=== PATIENT | female | born 1970 | race Caucasian/White ===

== ENCOUNTER → 2016-08-17 | Outpatient (CLI) | payer OTHER | LOC: CIMAGING 13:09 | PROVIDERS: ATTEND Internal Medicine | DX: N64.4 Mastodynia (principal) | CPT/HCPCS: 76641-PO; G0204 ==

== ENCOUNTER → 2016-12-18 | Outpatient (CLI) | payer OTHER | LOC: CIMAGING 13:19 → FIMAGING 14:41 | PROVIDERS: ATTEND Internal Medicine ==

== ENCOUNTER 2018-07-28 04:30 | Emergency (ER) | payer OTHER ==
[2018-07-28] MEDS ORDERED: PROPARACAINE 0.5% 15 ML OPHT DROP LEFTEYE ONE (04:51)
--- NOTE | 2018-07-28 04:57 | EDPHY ---
H & P Time Seen by Provider: 07/28/18 04:55 HPI/ROS: CC: left eye pain HPI: This 48-year-old female with past medical history of anxiety presents to the emergency department today complaining of left eye pain that woke her up at 2:00 a.m.. She states yesterday around 2 in the afternoon she developed cloudy vision in her left eye. She does wear biweekly contact lenses and had this particular contact lens for the last week. 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 She may have been rubbing her eye today as well. She called her eye doctor at the [facility] in the [facility] and they told her things to watch for and felt that it was not an emergency. They told her to take her contact lens out and rest her eyes. She went to sleep and woke up at 2:00 a.m. with severe pain. She did not have the sensation of a curtain closing over her eye and denies foreign body. She does not have a history of glaucoma. She takes only oral contraceptives. She does not have a history of HSV. REVIEW OF SYSTEMS: Constitutional: No fever, no chills. Eyes: No discharge. ENT: No sore throat. Respiratory: No cough. Skin: No rashes. Neurological: No headache. Past Medical/Surgical History: PMH: anxiety PSH: parathyroid surgery FH: denied NKDA Meds: OC PCP: Dr. Brandi Wiseman; eye doctor at [facility] Social History: Denies history of tobacco use. Rare alcohol use. No marijuana or other recreational drug use. She thinks her tetanus status is up-to-date. Smoking Status: Never smoked Physical Exam: General Appearance: Alert, severe distress. Crying. Eyes: Pupils equal and round. Left eyelid swollen from crying. ENT, Mouth: Mucous membranes are moist. No intraoral erythema or exudates. No oral lesions. Respiratory: There are no retractions. Cardiovascular: Normal peripheral perfusion. Neurological: Awake and alert, sensory and motor exams grossly normal. JCN II- XII grossly intact. Skin: Warm and dry, no rashes. Musculoskeletal: Neck is supple. Extremities are symmetrical, full range of motion. Psychiatric: Patient is oriented X 3, there is no agitation. DIFFERENTIAL DIAGNOSIS: After history and physical exam differential diagnosis was considered for but not limited to and in no particular order: Conjunctivitis, foreign body, corneal abrasion, corneal ulcer, HSV infection, acute closed angle glaucoma Constitutional: Initial Vital Signs Temperature (C) 98.4 F 07/28/18 04:41 Heart Rate 89 07/28/18 04:41 Respiratory Rate 18 07/28/18 04:41 Blood Pressure 163/107 H 07/28/18 04:41 O2 Sat (%) 97 07/28/18 04:41 O2 Delivery Mode Room Air Allergies/Adverse Reactions: No Known Allergies Allergy (Verified 11/09/14 22:43) Home Medications: Medication Instructions Recorded Junel 1 mg-20 Mcg Tablet 07/28/18 Medical Decision Making ED Course/Re-evaluation: The patient was seen and examined. Vital signs reviewed and showed elevated blood pressure. This remained elevated throughout her stay and she was advised to follow up with her primary care provider regarding this. Visual acuity noted. Please see nursing notes. The patient's eye was anesthetized with proparacaine eyedrops. Her retina was unable to be visualized by me. Fluorescein stain revealed a large approximately 5 mm circular uptake of the dye. Then her intra-ocular pressure was measured and was 18. Eyelids were everted and there was no evidence of foreign body. Slit-lamp exam also revealed this corneal abrasion. No hyphema. No cell and flare. No dendritic lesions. The patient's eye was irrigated and ofloxacin antibiotic eyedrops were applied to the left eye. She was advised to follow up with either her eye doctor or the molasses coloring operator listed on her discharge papers today. She may return to the emergency room if she has any further problems or concerns. - Data Points Medications Given: Discontinued Medications Fluorescein Sodium (Bioglo) 1 mg OP EDNOW ONE Stop: 07/28/18 05:06 Last Admin: 07/28/18 05:09 Dose: 1 mg Proparacaine HCl (Alcaine 0.5%) 1 drops LEFTEYE EDNOW ONE Stop: 07/28/18 04:52 Last Admin: 07/28/18 04:57 Dose: 1 drop Departure - Departure Disposition: Home, Routine, Self-Care Clinical Impression: Corneal abrasion Qualifiers: Encounter type: initial encounter Laterality: left Qualified Code(s): S05.02XA - Injury of conjunctiva and corneal abrasion without foreign body, left eye, initial encounter Condition: Good Instructions: Corneal Abrasion (ED), Corneal Ulcer (ED) Additional Instructions: Use the antibiotic eye drops as directed. Ofloxacin ophthalmic drops: 1-2 drops in left eye every 2-4 hours for 2 days THEN 1-2 drops four times a day for five days. See your eye doctor or the molasses coloring operator listed here for follow up TODAY. Return to the ER if any further problems or concerns as discussed. Follow up with your primary care provider for blood pressure check. It was elevated today in the ER. Referrals: Lisandra Hamlin MD [Medical Doctor] - 1 day without fail Brandi Wiseman MD [Medical Doctor] - As per Instructions
[2018-07-28] MEDS ORDERED: FLUORESCEIN SODIUM 1 MG STRIP OP ONE (05:05)
[2018-07-28] MEDS ORDERED: OFLOXACIN 0.3% SOLN PREPACK OPHT.BTL TAKEHOME ONE (05:32)
[2018-07-28 05:46] VITALS: BP 143/104
== END 2018-07-28 05:50 | disposition home or self-care (01) ==
LOC: CED 04:30
DX: S05.02XA Injury of conjunctiva and corneal abrasion without foreign body, left eye, initial encounter (principal); F41.9 Anxiety disorder, unspecified; X58.XXXA Exposure to other specified factors, initial encounter; Y99.9 Unspecified external cause status
CPT/HCPCS: 99283-ER